=== PATIENT | female | born 1995 | race African-American/Black ===

== ENCOUNTER 2020-01-24 20:33 | Emergency (ER) | payer OTHER ==
[~2020-01-24] VITALS: Ht 157.5 cm; Wt 43.1 kg
[2020-01-24 20:38] VITALS: BP 141/84
[2020-01-24] MEDS ORDERED: ONDANSETRON 4 MG ODT PO ONE (20:45)
[2020-01-24] MEDS ORDERED: IBUPROFEN 600 MG TAB PO ONE (20:45)
[2020-01-24] MEDS ORDERED: ACETAMINOPHEN 325 MG TAB PO ONE (20:45)
--- NOTE | 2020-01-24 20:50 | NUR ---
PT ASSESSMENT COMPLETE. PT ATTACHED TO MONITORING SYSTEM. WILL CONTINUE TO MONITOR
--- NOTE | 2020-01-24 21:29 | NUR ---
PT RETUNRED FROM CT VIA [facility]
[2020-01-24 22:06] VITALS: BP 114/73
--- NOTE | 2020-01-24 22:09 | NUR ---
Patient discharged with v/s stable. Written and verbal after care instructions given and explained. Patient alert, oriented and verbalized understanding of instructions. Ambulatory with steady gait. All questions addressed prior to discharge. ID band removed. Patient advised to follow up with PMD. Rx of zofran, naproxen given. Patient educated on indication of medication including possible reaction and side effects. Opportunity to ask questions provided and answered.
== END 2020-01-24 22:06 | disposition home or self-care (01) ==
LOC: MED 20:33
DX: F07.81 Postconcussional syndrome (principal); R11.2 Nausea with vomiting, unspecified
CPT/HCPCS: 70450; 81025; 99284; Q0162